=== PATIENT | male | born 1960 | race Caucasian/White ===

== ENCOUNTER 2023-07-19 07:31 | Outpatient (CLI) | payer MEDICARE ==
[2023-07-19] MEDS ORDERED: Iopamidol 370 76% 100 ML VIAL ONE (09:22)
== END 2023-07-19 07:32 | disposition home or self-care (01) ==
LOC: BICCT 07:31
PROVIDERS: ATTEND Specialist
DX: I71.40 Abdominal aortic aneurysm, without rupture, unspecified (principal); R10.9 Unspecified abdominal pain
CPT/HCPCS: 74178; 82565